=== PATIENT | female | born 1995 | race Caucasian/White ===

== ENCOUNTER 2021-04-26 05:22 | Emergency (ER) | payer OTHER ==
[~2021-04-26] VITALS: Ht 170.2 cm; Wt 68.9 kg
--- NOTE | 2021-04-26 05:43 | NUR ---
No beds avaialable. Placed in hallway after being triaged.
--- NOTE | 2021-04-26 05:49 | NUR ---
Dr Vincent into eval patient.
[2021-04-26] MEDS ORDERED: HYDR-500 GT (06:11)
--- NOTE | 2021-04-26 06:17 | NUR ---
Patient discharged to home in stable condition. Written and verbal after care instructions given. Patient verbalizes understanding of instructions. Stressed follow up or return to ER for worsening s/s.
== END 2021-04-26 06:17 | disposition home or self-care (01) ==
LOC: ER 05:30
DX: L42 Pityriasis rosea (principal)
CPT/HCPCS: A4663